=== PATIENT | female | born 1940 | race Caucasian/White ===

== ENCOUNTER 2025-01-30 10:06 | Emergency (ER) | payer MEDICARE, OTHER ==
[~2025-01-30] VITALS: Ht 162.6 cm; Wt 72.6 kg
[~2025-01-30 10:06] MED LIST: ASPIR 8181 MG PO; CRESTOR10 MG PO; EXFORGE 5-3201 EACH PO; FOLIC ACID1 MG PO; METHOTREXATE2.5 MG PO; METOPROLOL SUCC50 MG PO; ORENCIA125 MG/1 M INJ
[2025-01-30 10:21] VITALS: TEMP 98.3
[2025-01-30 10:53] LABS: BASOPHILS % 0.3 % (0.0-1.0); EOSINOPHILS % 0.3 % (0.0-6.0); LYMPHOCYTES % 12.5 % (18.0-39.1); MONOCYTES % 8.4 % (4.4-11.3); NEUTROPHILS % 78.0 % (38.7-80.0); RED CELL DISTRIBUTION WIDTH 15.1 % (11.7-14.4)
[2025-01-30 11:12] LABS: EST GLOMERULAR FILTRATION RATE 66.0 ML/MIN (>=60)
[2025-01-30] MEDS: KETOROLAC TROMETHAMINE 30 MG/ML VIAL IV STA (11:19)
[2025-01-30] MEDS: SODIUM CHLORIDE 0.9% 1000ML 1,000 ML IV STA (11:19)
[2025-01-30] MEDS ORDERED: IOPAMIDOL 370 MG/ML 100 ML INFUS..BTL INJ ONE (11:38)
[2025-01-30 13:46] LABS: LEUKOCYTE ESTERASE ,URINE NEGATIVE (NEGATIVE)
[2025-01-30 13:47] LABS: PROTEIN,URINE DIPSTICK NEGATIVE (NEGATIVE); URINE UROBILINOGEN 1 mg/dL (0.2 - 1)
[2025-01-30 13:48] LABS: EPITHELIAL CELLS,URINE FEW /LPF
[2025-01-30] MEDS ORDERED: CIPRO500 MG PO (15:10)
[2025-01-30 15:15] VITALS: PULSE 76; RESP 18; O2SAT 100
== END 2025-01-30 15:20 | disposition home or self-care (01) ==
LOC: ER 10:09
DX: R10.31 Right lower quadrant pain (principal); R33.9 Retention of urine, unspecified; R11.2 Nausea with vomiting, unspecified; K57.90 Diverticulosis of intestine, part unspecified, without perforation or abscess without bleeding; N20.0 Calculus of kidney; R91.8 Other nonspecific abnormal finding of lung field; R16.0 Hepatomegaly, not elsewhere classified
CPT/HCPCS: 36415; 51702; 74177; 80053; 81001; 82550; 83690; 84484; 85025; 87086; 87186; 93005; 99284; J1885; J7030; Q9967; 51700